=== PATIENT | male | born 2005 | race Caucasian/White ===

== ENCOUNTER 2024-09-05 16:36 | Emergency (ER) | payer BC, SELFPAY ==
[2024-09-05 16:50] VITALS: BP 150/100
[2024-09-05 17:46] LABS: % Basophils 0.4 % (0-2); % Eosinophils 0.3 % (0-6); % Immature Granulocytes 0.1 % (0-0.5); % Lymphocytes 21.7 % (20.5-51.1); % Monocytes 6.7 % (1.7-9.3); % Neutrophils 70.8 % (42.2-75.2); Absolute Lymphocytes 1.5 10^3/uL (1.2-3.4); Absolute Monocytes 0.5 10^3/uL (0.1-0.6); Absolute Neutrophils 4.9 10^3/uL (1.4-6.5); Hematocrit 41.5 % (39.0-52.0); Hemoglobin 15.1 g/dL (13.0-18.0); Mean Corp Hgb Conc. 36.4 g/dL (33.0-37.0); Mean Corpuscular Volume 87.9 fL (80.0-94.0); Mean Platelet Volume 9.6 fL (7.4-10.4); Nucleated Red Blood Cells % 0 % (-); Platelet Count 269 10^3/uL (130-400); Red Blood Cell Count 4.72 10^6/uL (4.70-6.10); Red Cell Dist. Width 11.7 % (11.5-14.5); White Blood Cell Count 6.9 10^3/uL (4.8-10.8)
--- NOTE | 2024-09-05 17:56 | ED.GENMED ---
History of Present Illness
General
Chief Complaint: Crisis Evaluation
Time Seen by Provider: 09/05/24 17:37
History of Present Illness
History of Present Illness:
19-year-old male with history of ADHD presenting to the emergency department with delusions. Patient states that about 3 weeks ago he strained something illegally and since then feels like the government is watching him. He feels as if there
drones flying over his head watching him. He also states that the TV is flickering in response to the government watching him. He is frustrated with these events happening and does state that he is suicidal. He doesn't know what his plan would be
but thinks his plan would be to jump off his roof. He denies any attempts to hurt himself. He does feel safe at home and states when he has he is here today with his mother who he lives with. he Denies any homicidal thoughts. No visual or
auditory hallucinations. Does admit to marijuana. Denies any other drug or alcohol use. No family history of psychiatric disease. No changes 3 weeks ago that triggered this.
Phy Exam
Physical Exam
Physical Exam:
GENERAL: in no acute distress
HEENT: normocephalic, extraocular movements intact, moist oral mucosa
NECK: normal inspection
RESPIRATORY: no respiratory distress, clear to auscultation bilaterally
CARDIOVASCULAR: regular rate and rhythm
ABDOMEN/: soft, non-distended, non-tender to palpation, no rebound or guarding
EXTREMITIES: non-tender, no edema/swelling
NEUROLOGIC: awake and alert, moves all extremities
Psych: Alert and oriented x 3, normal mood and affect, speech normal not pressured, coherent thought process, not tangential, not currently suicidal or homicidal, cooperative and communicating, no active auditory or visual hallucinations
SKIN: warm
Course
Orders/Labs/Results
Orders:
Orders
09/05/24 16:38
1:1 Observation - Suicide/ Violent Behavior As Directed
Crisis Consult Urgent
Reason for Consult: SI
09/05/24 17:14
Crisis Consult Urgent
Reason for Consult: New onset bizarre delusions with SI
Comment: hx of ADHD
09/05/24 17:26
Alcohol Urgent
Basic Metabolic Panel Urgent
Complete Blood Count/With Diff Urgent
TSH Reflex To Free T4 Urgent
Comment: ADDON
Urine Drug Abuse Screen Urgent
Date Specimen was Collected: 09/05/24
Time Specimen was Collected: 17:15
09/05/24 17:46
Add On- LAB Urgent
Tests Added?: tsh with reflex to t4
CT Head W/o Iv Contrast Urgent
Comment:
Reason For Exam: delusions, change in personality
Abnormal Lab Results
09/05/24
17:26
MCH 32.0 H pg
(27.0-31.0)
U Marijuana (THC) Screen Positive H
(Negative)
09/05/24 17:26
09/05/24 17:26
Vital Signs
Initial and Last Documented VS:
Initial Vital Signs
Temp Pulse Resp BP Pulse Ox
99.1 F 116 18 150/100 99
09/05/24 16:50 09/05/24 16:50 09/05/24 16:50 09/05/24 16:50 09/05/24 16:50
Last Documented Vital Signs
Temp Pulse Resp BP Pulse Ox
99.1 F 116 18 150/100 99
09/05/24 16:50 09/05/24 16:50 09/05/24 16:50 09/05/24 16:50 09/05/24 16:50
MDM/Problems Addressed
Differential Diagnosis Includes:
Patient is a 19-year-old man presenting to the emergency department with 3 weeks of delusions feeling as if the government is watching him as well as occasional suicidal thoughts when his thoughts are overwhelming. Vitals are notable for
hypertension and exam is otherwise reassuring. Will workup for new onset psychiatric disease with blood work urine and tox labs. I did discuss with patient's mother at bedside about CT scan. After shared decision making given the sudden onset
with no family history we will proceed with CT scan of the head. Will discuss with crisis.
*Critical Care Note
Total Time (30-74mins, 75-104mins- exclusive of procedures): Not Applicable
Update Note
Update Note:
Blood work reassuring. UDS notable for positive marijuana. CT scan per my interpretation is unremarkable.
Patient evaluated by crisis who is recommending intensive outpatient treatment. Patient and mother are comfortable with this plan. Patient again denies any SI currently. With him and mom feel comfortable going home.
patient signed out to oncoming attending pending official CT read and resources given to patient.
ED Attending Note
-
Portions of this chart may have been created with voice recognition software.� Occasional wrong word or��sound alike� substitutions may have occurred due to the inherent limitations of voice recognition software.
Discharge Plan
Departure
Patient with high blood pressure during this ER visit?: Yes
Discharge Problem:
Delusions, Passive suicidal ideations
Interventions
Interventions:
*Risk Screen - Suicide Last Done: 09/05/24 16:37
*General Assessment Last Done: 09/05/24 16:50
*Neglect/Abuse Screening Last Done: 09/05/24 16:50
ED-Psychological Assessment Last Done: 09/05/24 18:18
Discharge Date and Time
Print Language: SAMI
[2024-09-05 17:59] LABS: Amphetamines Negative (Negative); Barbiturates Negative (Negative); Benzodiazepines Negative (Negative); Buprenorphine Negative (Negative); Cocaine Negative (Negative); Marijuana Positive (Negative); Methadone Negative (Negative); Methamphetamines Negative (Negative); Opiates Negative (Negative); Phencyclidine Negative (Negative); Tricyclic Antidepressants Negative (Negative)
[2024-09-05 18:06] LABS: Blood Urea Nitrogen 16 mg/dl (9-20); Calcium 9.5 mg/dl (8.4-10.2); Carbon Dioxide 24 mmol/L (22-30); Chloride 101 mmol/L (98-107); Glucose 94 mg/dl (70-99); Sodium 139 mmol/L (135-145); eGFR > 60.00
[2024-09-05 18:07] LABS: Alcohol None Detected
[2024-09-05 18:36] LABS: TSH Reflex To Free T4 0.66 uIU/ml (0.47-4.68)
--- NOTE | 2024-09-05 21:15 | ED.GENMED ---
History of Present Illness
General
Chief Complaint: Crisis Evaluation
Time Seen by Provider: 09/05/24 17:37
Course
Orders/Labs/Results
Orders:
Orders
09/05/24 16:38
1:1 Observation - Suicide/ Violent Behavior As Directed
Crisis Consult Urgent
Reason for Consult: SI
09/05/24 17:14
Crisis Consult Urgent
Reason for Consult: New onset bizarre delusions with SI
Comment: hx of ADHD
09/05/24 17:26
Alcohol Urgent
Basic Metabolic Panel Urgent
Complete Blood Count/With Diff Urgent
TSH Reflex To Free T4 Urgent
Comment: ADDON
Urine Drug Abuse Screen Urgent
Date Specimen was Collected: 09/05/24
Time Specimen was Collected: 17:15
09/05/24 17:46
Add On- LAB Urgent
Tests Added?: tsh with reflex to t4
CT Head W/o Iv Contrast Urgent
Comment:
Reason For Exam: delusions, change in personality
Abnormal Lab Results
09/05/24
17:26
MCH 32.0 H pg
(27.0-31.0)
U Marijuana (THC) Screen Positive H
(Negative)
09/05/24 17:26
09/05/24 17:26
Vital Signs
Initial and Last Documented VS:
Initial Vital Signs
Temp Pulse Resp BP Pulse Ox
99.1 F 116 18 150/100 99
09/05/24 16:50 09/05/24 16:50 09/05/24 16:50 09/05/24 16:50 09/05/24 16:50
Last Documented Vital Signs
Temp Pulse Resp BP Pulse Ox
99.1 F 116 18 150/100 99
09/05/24 16:50 09/05/24 16:50 09/05/24 16:50 09/05/24 16:50 09/05/24 16:50
ED Attending Note
-
Portions of this chart may have been created with voice recognition software.� Occasional wrong word or��sound alike� substitutions may have occurred due to the inherent limitations of voice recognition software.
Discharge Plan
Departure
Patient Disposition: Home (Routine Discharge)
Date of Disposition: 09/05/24
Time of Disposition: 21:15
Patient with high blood pressure during this ER visit?: Yes
Discharge Problem:
Delusions, Passive suicidal ideations
Interventions
Interventions:
*Risk Screen - Suicide Last Done: 09/05/24 16:37
*General Assessment Last Done: 09/05/24 16:50
*Neglect/Abuse Screening Last Done: 09/05/24 16:50
ED-Psychological Assessment Last Done: 09/05/24 18:18
Discharge Date and Time
Print Language: CZECH
[2024-09-05 21:16] VITALS: BP 124/77
== END 2024-09-05 21:19 | disposition home or self-care (01) ==
LOC: EMR 16:36
PROVIDERS: EMERGENCY PHYSICIAN Student in an Organized Health Care Education/Training Program; FAMILY PHYSICIAN Family Medicine Adult Medicine
DX: F22 Delusional disorders (principal); R45.851 Suicidal ideations; F90.9 Attention-deficit hyperactivity disorder, unspecified type; R03.0 Elevated blood-pressure reading, without diagnosis of hypertension
CPT/HCPCS: 99284; 70450; 80048; 80306; 82077; 84443; 85025